=== PATIENT | male | born 1950 | race American Indian/Alaskan Native ===

== ENCOUNTER 2020-05-02 15:55 | Emergency (ER) | payer MEDICARE, MEDICAID ==
[2020-05-02 16:03] VITALS: BP 134/87
--- NOTE | 2020-05-02 17:31 | Emergency Department Report ---
Blank Doc - Documentation Documentation: 70-year-old male that presents with left foot abrasion after stepping on a nail. This initial assessment/diagnostic orders/clinical plan/treatment(s) is/are subject to change based on patient's health status, clinical progression and re- assessment by fellow clinical providers in the ED. Further treatment and workup at subsequent clinical providers discretion. Patient/guardians urged not to elope from the ED as their condition may be serious if not clinically assessed a nd managed. Initial orders include: 1- Patient sent to [facility] for further evaluation and treatment 2- xrays 3- tetanus needed 4- area needs to be cleaned and sterile dressing applied
[2020-05-02] MEDS ORDERED: DIPHtheria,PERTUSSIS(ACELL),TETANUS VACCINE/PF 0.5 ML VIAL IM ONE ×2 (17:32→20:09)
--- NOTE | 2020-05-02 18:16 | XRay Report ---
LEFT FOOT, 3 VIEWS INDICATION / CLINICAL INFORMATION: abrasion r/o foreign body. COMPARISON: None available. FINDINGS: The bones are mildly diffusely demineralized. There are degenerative changes throughout the foot, age appropriate. No acute fracture or dislocation is identified. Soft tissues do not demonstrate a radiopaque foreign object. IMPRESSION: No radiopaque foreign object identified. No acute fracture or dislocation. Signer Name: Angelina Sahffer MD Signed: 05/02/2020 6:11 PM Workstation Name: [id number]
--- NOTE | 2020-05-02 19:55 | Emergency Department Report ---
- General Chief Complaint: Puncture Wound Stated Complaint: LEFT FOOT STEPPED ON NAIL Time Seen by Provider: 05/02/20 17:29 Source: patient Mode of arrival: Ambulatory Limitations: No Limitations - Related Data Previous Rx's Medication Instructions Recorded Last Taken Type Ciprofloxacin HCl [Ciprofloxacin 500 mg PO Q12HR #14 tab 05/02/20 Unknown Rx TAB] traMADoL [Ultram] 50 mg PO Q4HR PRN #14 tablet 05/02/20 Unknown Rx Allergies Allergy/AdvReac Type Severity Reaction Status Date / Time No Known Allergies Allergy Unverified 05/02/20 15:59 ED Review of Systems ROS: Stated complaint: LEFT FOOT STEPPED ON NAIL Other details as noted in HPI ED Past Medical Hx - Past Medical History Hx Hypertension: Yes - Surgical History Additional Surgical History: COLN/ KNEE - Social History Smoking Status: Never Smoker Substance Use Type: None - Medications Home Medications: Home Medications Medication Instructions Recorded Confirmed Last Taken Type Ciprofloxacin HCl [Ciprofloxacin 500 mg PO Q12HR #14 tab 05/02/20 Unknown Rx TAB] traMADoL [Ultram] 50 mg PO Q4HR PRN #14 tablet 05/02/20 Unknown Rx ED Course Vital Signs 05/02/20 16:02 Temperature 98.4 F Pulse Rate 78 Respiratory 18 Rate Blood Pressure 134/87 O2 Sat by Pulse 99 Oximetry ED Medical Decision Making - Radiology Data Referring Physician: JAYLENE HELMS Patient Name: VIRGIE FORD Date of : 1950 Sex: Male Report Date: 2020-05-02 Report Status: Finalized [address] [address] XRay Report Signed Patient: VIRGIE FORD MR#: [id number] : 1950 Acct:[id number] Age/Sex: 70 / M ADM Date: 05/02/20 Loc: ED Attending Dr: Ordering Physician: JAYLENE HELMS NP Date of Service: 05/02/20 Procedure(s): XR foot 3+V LT Accession Number(s): [id number] cc: JAYLENE HELMS NP Fluoro Time In Minutes: LEFT FOOT, 3 VIEWS INDICATION / CLINICAL INFORMATION: abrasion r/o foreign body. COMPARISON: None available. FINDINGS: The bones are mildly diffusely demineralized. There are degenerative changes throughout the foot, age appropriate. No acute fracture or dislocation is identified. Soft tissues do not demonstrate a radiopaque foreign object. IMPRESSION: No radiopaque foreign object identified. No acute fracture or dislocation. Signer Name: Angelina Shaffer MD Signed: 05/02/2020 6:11 PM Workstation Name: [id number] Transcribed By: JR Dictated By: Angelina Shaffer MD Electronically Authenticated By: Angelina Shaffer MD Signed Date/Time: 05/02/201810 DD/ 09 TD/TT: Critical care attestation.: If time is entered above; I have spent that time in minutes in the direct care of this critically ill patient, excluding procedure time. ED Disposition Prescriptions: Ciprofloxacin HCl [Ciprofloxacin TAB] 500 mg PO Q12HR #14 tab traMADoL [Ultram] 50 mg PO Q4HR PRN #14 tablet PRN Reason: Pain Referrals: JAMARCUS MENDENHALL MD [Primary Care Provider] - 3-5 Days
--- NOTE | 2020-05-02 19:59 | Emergency Department Report ---
ED Lower Extremity HPI - General Chief Complaint: Puncture Wound Stated Complaint: LEFT FOOT STEPPED ON NAIL Time Seen by Provider: 05/02/20 17:29 Source: patient Mode of arrival: Ambulatory Limitations: No Limitations - History of Present Illness Initial Comments: 70-year-old male presents emergency department complaining of accidentally stepping on a nail today causing pain to the lower portion of his foot is unsure of his tetanus status. Reports no numbness or tingling. No fevers, chills, sweats no chest pain or palpitations no nausea vomiting - Related Data Previous Rx's Medication Instructions Recorded Last Taken Type Ciprofloxacin HCl [Ciprofloxacin 500 mg PO Q12HR #14 tab 05/02/20 Unknown Rx TAB] Ciprofloxacin HCl [Ciprofloxacin 500 mg PO Q12HR #14 tab 05/02/20 Unknown Rx TAB] traMADoL [Ultram] 50 mg PO Q4HR PRN #14 tablet 05/02/20 Unknown Rx Allergies Allergy/AdvReac Type Severity Reaction Status Date / Time No Known Allergies Allergy Unverified 05/02/20 15:59 ED Review of Systems ROS: Stated complaint: LEFT FOOT STEPPED ON NAIL Other details as noted in HPI Comment: All other systems reviewed and negative ED Past Medical Hx - Past Medical History Hx Hypertension: Yes - Surgical History Additional Surgical History: COLN/ KNEE - Social History Smoking Status: Never Smoker Substance Use Type: None - Medications Home Medications: Home Medications Medication Instructions Recorded Confirmed Last Taken Type Ciprofloxacin HCl [Ciprofloxacin 500 mg PO Q12HR #14 tab 05/02/20 Unknown Rx TAB] Ciprofloxacin HCl [Ciprofloxacin 500 mg PO Q12HR #14 tab 05/02/20 Unknown Rx TAB] traMADoL [Ultram] 50 mg PO Q4HR PRN #14 tablet 05/02/20 Unknown Rx ED Physical Exam - General Limitations: No Limitations - Neck Neck exam: Present: normal inspection - Respiratory Respiratory exam: Present: normal lung sounds bilaterally. Absent: respiratory distress - Extremities Exam Extremities exam: Present: normal inspection, tenderness (Puncture wound to the mid left foot no obvious foreign body no discharge) - Back Exam Back exam: Present: normal inspection ED Course Vital Signs 05/02/20 16:02 Temperature 98.4 F Pulse Rate 78 Respiratory 18 Rate Blood Pressure 134/87 O2 Sat by Pulse 99 Oximetry ED Lower Extremity MDM - Radiology Data Radiology results: report reviewed X-ray shows no foreign body Critical care attestation.: If time is entered above; I have spent that time in minutes in the direct care of this critically ill patient, excluding procedure time. ED Disposition Clinical Impression: Penetrating foot wound Disposition: DC-01 TO HOME OR SELFCARE Is pt being admited?: No Does the pt Need Aspirin: No Condition: Stable Instructions: Puncture Wound (ED) Prescriptions: Ciprofloxacin HCl [Ciprofloxacin TAB] 500 mg PO Q12HR #14 tab Ciprofloxacin HCl [Ciprofloxacin TAB] 500 mg PO Q12HR #14 tab traMADoL [Ultram] 50 mg PO Q4HR PRN #14 tablet PRN Reason: Pain Referrals: JAMARCUS MENDENHALL MD [Primary Care Provider] - 3-5 Days
== END 2020-05-02 20:15 | disposition home or self-care (01) ==
LOC: ED 15:55
DX: S91.331A Puncture wound without foreign body, right foot, initial encounter (principal); I10 Essential (primary) hypertension; Z79.899 Other long term (current) drug therapy; W22.8XXA Striking against or struck by other objects, initial encounter; Y93.89 Activity, other specified; Y92.89 Other specified places as the place of occurrence of the external cause; Y99.8 Other external cause status
CPT/HCPCS: 90471; 90715; 99283

== ENCOUNTER 2022-03-08 04:29 | Emergency (ER) | payer MEDICARE, MEDICAID ==
[2022-03-08 04:36] VITALS: BP 169/93
== END 2022-03-09 12:14 ==
LOC: ED 04:29
DX: R10.9 Unspecified abdominal pain (principal); Z53.21 Procedure and treatment not carried out due to patient leaving prior to being seen by health care provider